=== PATIENT | female | born 1955 | race Caucasian/White ===

== ENCOUNTER 2024-03-12 14:00 | Outpatient (RCR) | payer MEDICARE, SELFPAY | END 2024-07-10 23:59 | disposition home or self-care (01) | PROVIDERS: PCP Family Medicine; Visit Provider Family Medicine | DX: K59.09 Other constipation (principal); Z51.89 Encounter for other specified aftercare | CPT/HCPCS: 97110; 97112; 97140; 97162; 97535 ==